=== PATIENT | female | born 1990 | race Two or more races ===

== ENCOUNTER 2025-01-22 00:21 | Inpatient (IN) | payer OTHER ==
[~2025-01-22] VITALS: Ht 160 cm; Wt 59.0 kg
[2025-01-22] MEDS ORDERED: 0.9 % SODIUM CHLORIDE 1,000 ML IV ONE (02:15)
[2025-01-22 02:50] LABS: BASO % 0.4 % (0.1-1.2); EOS # 0.13 (0.04-0.54); EOS % 1.8 % (0.7-7.0); LYMPH # 2.10 (1.18-3.74); LYMPH % 28.3 % (19.3-53.1); MEAN PLATELET VOLUME 10.10 fl (9.4-12.4); MONO # 0.57 (0.24-0.82); MONO % 7.7 % (4.7-12.5); NEUT # 4.57 (1.56-6.13); NEUT % 61.5 % (34.0-71.1); RED CELL DISTRIBUTION WIDTH 12.4 % (11.6-14.4)
[2025-01-22 03:10] LABS: INR 1.0
[2025-01-22 03:16] LABS: ALT/SGPT 588 U/L (12-78); AST/SGOT 284 U/L (15-37); BILIRUBIN TOTAL 1.78 mg/dL (0.3-1.2); BILIRUBIN,CONJUGATED 1.14 mg/dL (0.0-0.2); BUN CREA RATIO 15 (7.0-25.0); CREATININE SERUM 0.74 mg/dL (0.55-1.02); GFR 89.84; GLOBULINA 4.3 G/DL (2.4-3.5); GLUCOSE FASTING 78 mg/dL (65-100); OSMOLALITY SERUM 278 MOSM/KG (275-295)
[2025-01-22 03:17] LABS: HCG QUANTITATIVE < 1 mUI/mL (1-3)
[2025-01-22 11:47] LABS: URINE APPEARANCE Clear; URINE BILIRRUBIN Small (NEGATIVE); URINE BLOOD Small; URINE COLOR Dark Yellow; URINE GLUCOSE Negative (NEGATIVE); URINE LEUKOCYTE Negative; URINE NITRATE Negative; URINE PROTEIN Negative (NEGATIVE); URINE UROBILINOGEN 1.0 E.U./dl
[2025-01-22 11:48] LABS: URINE BACTERIA 12.0 uL (0.0-1933); URINE RBC 75.6 uL (0.0-20.8); URINE WBC 2.7 uL (0.0-23.2)
[2025-01-22 11:55] LABS: URINE CAST 0.00 uL (0.0-1.40); URINE EPITHELIAL CELLS 1.3 uL (0.0-38.8); URINE KETONE 80 (NEGATIVE)
[2025-01-22] MEDS ORDERED: ONDANSETRON HCL 4 MG in DEXTROSE 5 % IN WATER 50 ML IV PRN (13:30)
[2025-01-22] MEDS ORDERED: RINGERS SOLUTION,LACTATED 1,000 ML IV SCH (13:30)
[2025-01-22 13:51] VITALS: BP 106/63; O2SAT 99
[2025-01-22 13:52] VITALS: BP 106/63
[2025-01-22 13:56] LABS: BASO % 0.5 % (0.1-1.2); EOS # 0.10 (0.04-0.54); EOS % 1.3 % (0.7-7.0); LYMPH # 1.62 (1.18-3.74); LYMPH % 21.4 % (19.3-53.1); MEAN PLATELET VOLUME 10.40 fl (9.4-12.4); MONO # 0.43 (0.24-0.82); MONO % 5.7 % (4.7-12.5); NEUT # 5.37 (1.56-6.13); NEUT % 70.8 % (34.0-71.1); RED CELL DISTRIBUTION WIDTH 12.6 % (11.6-14.4)
[2025-01-22 14:01] LABS: ERYTHROCYTE SEDIMENTATION RATE 12 mm/hr (0-20)
[2025-01-22 14:28] LABS: ALT/SGPT 441.0 U/L (12-78); AST/SGOT 143.0 U/L (15-37); BILIRUBIN TOTAL 0.98 mg/dL (0.3-1.2); BUN CREA RATIO 19.0 (7.0-25.0); CHOL HDL RATIO 2.1 (0-5.0); CREATININE SERUM 0.69 mg/dL (0.55-1.02); GFR 97.39; GLOBULINA 3.6 G/DL (2.4-3.5); GLUCOSE FASTING 68.0 mg/dL (65-100); HDL 82.0 mg/dl (40-60); LDL 86.0 mg/dl (0-130); OSMOLALITY SERUM 278.0 MOSM/KG (275-295); VLDL 8.0 (0-39)
[2025-01-22 15:10] VITALS: BP 99/64; O2SAT 100
[2025-01-22] MEDS ORDERED: MORPHINE SULFATE 2 MG/ML CARTRIDGE IV PRN (18:45)
[2025-01-22] MEDS ORDERED: KETOROLAC TROMETHAMINE 30 MG VIAL IV PRN (18:45)
[2025-01-22 19:53] VITALS: BP 92/58; O2SAT 100
[2025-01-22] MEDS ORDERED: FAMOTIDINE/PF 20 MG/2 ML VIAL IV SCH (21:00)
[2025-01-23 01:05] VITALS: BP 99/68; O2SAT 99
[2025-01-23 06:46] LABS: BASO % 0.4 % (0.1-1.2); EOS # 0.22 (0.04-0.54); EOS % 2.6 % (0.7-7.0); LYMPH # 2.07 (1.18-3.74); LYMPH % 24.9 % (19.3-53.1); MEAN PLATELET VOLUME 10.70 fl (9.4-12.4); MONO # 0.65 (0.24-0.82); MONO % 7.8 % (4.7-12.5); NEUT # 5.33 (1.56-6.13); NEUT % 64.1 % (34.0-71.1); RED CELL DISTRIBUTION WIDTH 12.4 % (11.6-14.4)
[2025-01-23 07:21] LABS: ALT/SGPT 306.0 U/L (12-78); AST/SGOT 76.0 U/L (15-37); BILIRUBIN TOTAL 0.97 mg/dL (0.3-1.2); BUN CREA RATIO 23.0 (7.0-25.0); CREATININE SERUM 0.56 mg/dL (0.55-1.02); GFR 123.92; GLOBULINA 2.9 G/DL (2.4-3.5); GLUCOSE FASTING 55.0 mg/dL (65-100); OSMOLALITY SERUM 277.0 MOSM/KG (275-295)
[2025-01-23 09:22] VITALS: BP 98/58; O2SAT 98
[2025-01-23] MEDS ORDERED: TRAM1TAB98 PO (15:24)
[2025-01-23] MEDS ORDERED: ZOFRAN8 MG PO (15:25)
[2025-01-23] MEDS ORDERED: PROTONIX20 MG PO (15:26)
[2025-01-24 07:07] LABS: hav igm Negative (Negative); hep b c Negative (Negative); hep b s ag Negative (Negative)
== END 2025-01-23 17:47 | disposition home or self-care (01) | DRG 440 ==
LOC: ER 00:21 → MEDJ 13:43
PROVIDERS: General Practice; ADMIT Internal Medicine; ATTEND Internal Medicine
PROC: BF37ZZZ Magnetic Resonance Imaging (MRI) of Pancreas (ICD-10-PCS; principal; 2025-01-22)
DX: K85.90 Acute pancreatitis without necrosis or infection, unspecified (principal); R74.01 Elevation of levels of liver transaminase levels; R74.8 Abnormal levels of other serum enzymes; K80.20 Calculus of gallbladder without cholecystitis without obstruction

== ENCOUNTER 2025-05-18 15:47 | Emergency (ER) | payer OTHER ==
[~2025-05-18] VITALS: Ht 160 cm; Wt 56.7 kg
[~2025-05-18 15:47] MED LIST: PROTONIX20 MG PO; TRAM1TAB98 PO; ZOFRAN8 MG PO
[2025-05-18] MEDS ORDERED: ONDANSETRON HCL 2 MG/ML VIAL IV ONE (18:45)
[2025-05-18] MEDS ORDERED: FAMOTIDINE/PF 20 MG/2 ML VIAL IV ONE (18:45)
[2025-05-18] MEDS ORDERED: 0.9 % SODIUM CHLORIDE 1,000 ML IV ONE (19:00)
[2025-05-18] MEDS ORDERED: FAMOTIDINE/PF 20 MG/2 ML VIAL ONE (19:04)
[2025-05-18] MEDS ORDERED: ONDANSETRON HCL 2 MG/ML VIAL ONE (19:04)
[2025-05-18 20:00] LABS: BASO % 0.2 % (0.1-1.2); EOS # 0.04 (0.04-0.54); EOS % 0.4 % (0.7-7.0); LYMPH # 1.94 (1.18-3.74); LYMPH % 20.5 % (19.3-53.1); MEAN PLATELET VOLUME 9.90 fl (9.4-12.4); MONO # 0.74 (0.24-0.82); MONO % 7.8 % (4.7-12.5); NEUT # 6.71 (1.56-6.13); NEUT % 70.9 % (34.0-71.1); RED CELL DISTRIBUTION WIDTH 12.6 % (11.6-14.4)
[2025-05-18 20:27] LABS: INR 1.01
[2025-05-18 20:31] LABS: ALT/SGPT 270.0 U/L (12-78); AST/SGOT 473.0 U/L (15-37); BILIRUBIN TOTAL 0.87 mg/dL (0.3-1.2); BILIRUBIN,CONJUGATED 0.47 mg/dL (0.0-0.2); BUN CREA RATIO 14.0 (7.0-25.0); CREATININE SERUM 0.76 mg/dL (0.55-1.02); GFR 87.11; GLOBULINA 4.3 G/DL (2.4-3.5); GLUCOSE FASTING 92.0 mg/dL (65-100); OSMOLALITY SERUM 280.0 MOSM/KG (275-295)
[2025-05-18] MEDS ORDERED: KETOROLAC TROMETHAMINE 30 MG VIAL ONE (21:40)
[2025-05-18] MEDS ORDERED: PIPERACILLIN/TAZOBACTAM SODIUM 3.375 GM VIAL IV ONE ×2 (21:45→21:52)
[2025-05-18] MEDS ORDERED: KETOROLAC TROMETHAMINE 30 MG VIAL IV PRN (22:00)
[2025-05-18] MEDS ORDERED: DICY20TA PO (22:36)
[2025-05-18] MEDS ORDERED: PEPCID AC20 MG PO (22:36)
[2025-05-18] MEDS ORDERED: IBU600 MG PO (22:36)
== END 2025-05-19 03:00 | disposition home or self-care (01) ==
LOC: ER 15:48
PROVIDERS: General Practice
DX: R10.13 Epigastric pain (principal); K85.10 Biliary acute pancreatitis without necrosis or infection

== ENCOUNTER 2025-05-25 17:49 | Inpatient (IN) | payer OTHER ==
[~2025-05-25] VITALS: Ht 160 cm; Wt 56.7 kg
[~2025-05-25 17:49] MED LIST changes: +DICY20TA PO; +IBU600 MG PO; +PEPCID AC20 MG PO
[2025-05-25] MEDS ORDERED: KETOROLAC TROMETHAMINE 30 MG VIAL IU ONE (18:45)
[2025-05-25] MEDS ORDERED: FAMOTIDINE/PF 20 MG in 0.9 % SODIUM CHLORIDE 8 ML IV PUSH ONE (18:45)
[2025-05-25] MEDS ORDERED: HYOSCYAMINE SULFATE 0.125 MG TAB.SUBL SL ONE (18:45)
[2025-05-25] MEDS ORDERED: ONDANSETRON HCL 4 MG in 0.9 % SODIUM CHLORIDE 50 ML IV ONE (18:45)
[2025-05-25] MEDS ORDERED: 0.9 % SODIUM CHLORIDE 1,000 ML IV SCH (18:45)
[2025-05-25] MEDS ORDERED: HYOSCYAMINE SULFATE 0.125 MG TAB.SUBL ONE (18:46)
[2025-05-25] MEDS ORDERED: KETOROLAC TROMETHAMINE 30 MG VIAL ONE (18:46)
[2025-05-25] MEDS ORDERED: FAMOTIDINE/PF 20 MG/2 ML VIAL ONE (18:46)
[2025-05-25] MEDS ORDERED: ONDANSETRON HCL 2 MG/ML VIAL ONE (18:46)
[2025-05-25 18:52] LABS: BASO % 0.5 % (0.1-1.2); EOS # 0.05 (0.04-0.54); EOS % 0.7 % (0.7-7.0); LYMPH # 2.71 (1.18-3.74); LYMPH % 36.8 % (19.3-53.1); MEAN PLATELET VOLUME 10.20 fl (9.4-12.4); MONO # 0.50 (0.24-0.82); MONO % 6.8 % (4.7-12.5); NEUT # 4.05 (1.56-6.13); NEUT % 54.9 % (34.0-71.1); RED CELL DISTRIBUTION WIDTH 12.8 % (11.6-14.4)
[2025-05-25 18:53] LABS: URINE APPEARANCE Clear; URINE BILIRRUBIN Negative (NEGATIVE); URINE BLOOD Negative; URINE COLOR Yellow; URINE GLUCOSE Negative (NEGATIVE); URINE KETONE Negative (NEGATIVE); URINE LEUKOCYTE Moderate; URINE NITRATE Negative; URINE PROTEIN Negative (NEGATIVE); URINE UROBILINOGEN 0.2 E.U./dl
[2025-05-25 18:56] LABS: URINE BACTERIA 467.8 uL (0.0-1933); URINE EPITHELIAL CELLS 17.6 uL (0.0-38.8); URINE RBC 20.2 uL (0.0-20.8); URINE WBC 35.7 uL (0.0-23.2)
[2025-05-25 19:02] LABS: URINE CAST 0.00 uL (0.0-1.40)
[2025-05-25 19:14] LABS: INR 1.04
[2025-05-25 19:33] LABS: ALT/SGPT 86 U/L (12-78); AST/SGOT 25 U/L (15-37); BILIRUBIN TOTAL 0.43 mg/dL (0.3-1.2); BUN CREA RATIO 14 (7.0-25.0); CREATININE SERUM 0.80 mg/dL (0.55-1.02); GFR 82.11; GLOBULINA 4.0 G/DL (2.4-3.5); GLUCOSE FASTING 77 mg/dL (65-100); OSMOLALITY SERUM 276 MOSM/KG (275-295)
[2025-05-25 19:40] LABS: HCG QUANTITATIVE < 1 mUI/mL (1-3)
[2025-05-25 19:57] LABS: BILIRUBIN,CONJUGATED 0.14 mg/dL (0.0-0.2)
[2025-05-26] MEDS ORDERED: METOCLOPRAMIDE HCL 5 MG/ML VIAL IV PRN (00:15)
[2025-05-26] MEDS ORDERED: MORPHINE SULFATE 4 MG/ML CARTRIDGE IV PRN ×2 (00:15→14:42)
[2025-05-26] MEDS ORDERED: METRONIDAZOLE/SODIUM CHLORIDE 500 MG/100 ML PIGGYBACK IV ONE ×2 (00:27→10:19)
[2025-05-26] MEDS ORDERED: BUPIVACAINE HCL/MPF 0.5% 30ML VIAL ONE (07:11)
[2025-05-26] MEDS ORDERED: LIDOCAINE HCL 1%/EPINEPHRINE 20ML VIAL IJ ONE (07:11)
[2025-05-26] MEDS ORDERED: CEFAZOLIN SODIUM 1,000 MG VIAL ONE (07:47)
[2025-05-26] MEDS ORDERED: CIPROFLOXACIN IN 5 % DEXTROSE 200 ML IV SCH (09:00)
[2025-05-26] MEDS ORDERED: FAMOTIDINE/PF 20 MG/2 ML VIAL IV SCH (09:00)
[2025-05-26] MEDS ORDERED: CIPROFLOXACIN IN 5 % DEXTROSE 400 MG/200 ML PIGGYBAG IV ONE (10:19)
[2025-05-26] MEDS ORDERED: FAMOTIDINE/PF 20 MG/2 ML VIAL ONE (10:19)
[2025-05-26 12:10] VITALS: BP 105/66; O2SAT 99
[2025-05-26] MEDS ORDERED: ONDANSETRON HCL 2 MG/ML VIAL IV PRN (12:30)
[2025-05-26 12:31] LABS: BASO % 0.2 % (0.1-1.2); EOS # 0.04 (0.04-0.54); EOS % 0.4 % (0.7-7.0); LYMPH # 1.02 (1.18-3.74); LYMPH % 9.5 % (19.3-53.1); MEAN PLATELET VOLUME 10.40 fl (9.4-12.4); MONO # 0.53 (0.24-0.82); MONO % 5.0 % (4.7-12.5); NEUT # 9.04 (1.56-6.13); NEUT % 84.5 % (34.0-71.1); RED CELL DISTRIBUTION WIDTH 13.0 % (11.6-14.4)
[2025-05-26 13:12] LABS: ALT/SGPT 68.0 U/L (12-78); AST/SGOT 30.0 U/L (15-37); BILIRUBIN TOTAL 0.37 mg/dL (0.3-1.2); BILIRUBIN,CONJUGATED 0.11 mg/dL (0.0-0.2)
[2025-05-26] MEDS ORDERED: METOCLOPRAMIDE HCL 5 MG/ML VIAL IV NR (16:00)
[2025-05-26 16:02] VITALS: BP 112/60; O2SAT 98
[2025-05-27] VITALS: BP 103/68; O2SAT 100
[2025-05-27] MEDS ORDERED: METOCLOPRAMIDE HCL 5 MG/ML VIAL IV SCH (01:00)
[2025-05-27 06:18] LABS: BASO % 0.2 % (0.1-1.2); EOS # 0.01 (0.04-0.54); EOS % 0.1 % (0.7-7.0); LYMPH # 0.39 (1.18-3.74); LYMPH % 4.4 % (19.3-53.1); MEAN PLATELET VOLUME 10.70 fl (9.4-12.4); MONO # 0.46 (0.24-0.82); MONO % 5.2 % (4.7-12.5); NEUT # 7.93 (1.56-6.13); NEUT % 89.9 % (34.0-71.1); RED CELL DISTRIBUTION WIDTH 12.7 % (11.6-14.4)
[2025-05-27 06:49] LABS: ALT/SGPT 76.0 U/L (12-78); AST/SGOT 34.0 U/L (15-37); BILIRUBIN TOTAL 0.57 mg/dL (0.3-1.2); BILIRUBIN,CONJUGATED 0.16 mg/dL (0.0-0.2)
[2025-05-27] MEDS ORDERED: MORPHINE SULFATE 4 MG/ML CARTRIDGE IV PRN (08:30)
[2025-05-27 10:17] VITALS: BP 100/62; O2SAT 97
[2025-05-27] MEDS ORDERED: TRAM1TAB98 PO (12:40)
== END 2025-05-27 13:40 | disposition home or self-care (01) | DRG 419 ==
LOC: ER 17:50 → SURG 05-26 00:09 → SURH 05-26 15:30
PROVIDERS: General Practice; Student in an Organized Health Care Education/Training Program; ADMIT Internal Medicine; ATTEND Internal Medicine
PROC: BW40ZZZ Ultrasonography of Abdomen (ICD-10-PCS; 2025-05-25)
PROC: 0FT44ZZ Resection of Gallbladder, Percutaneous Endoscopic Approach (ICD-10-PCS; principal; 2025-05-26 07:00)
DX: K80.10 Calculus of gallbladder with chronic cholecystitis without obstruction (principal); K80.20 Calculus of gallbladder without cholecystitis without obstruction; R10.9 Unspecified abdominal pain; R74.8 Abnormal levels of other serum enzymes; E63.9 Nutritional deficiency, unspecified; R10.13 Epigastric pain